=== PATIENT | male | born 1995 ===

== ENCOUNTER 2023-05-05 11:07 | Inpatient (IN) | payer OTHER, SELFPAY ==
--- NOTE | ~2023-05-05 | XR_ITS ---
EXAMINATION: XR CHEST CLINICAL INFORMATION: Weakness. Dizziness. COMPARISON: None available. TECHNIQUE: 2 views of the chest were obtained. FINDINGS: No significant abnormality is noted involving the heart, lungs, mediastinum, bony thorax or soft tissues. XR/XR chest 2V IMPRESSION: Normal chest PA and lateral.
[2023-05-05 11:25] VITALS: BP 138/71; PULSE 95; RESP 18; TEMP 36.8; O2SAT 99; BMI 29.9
--- NOTE | 2023-05-05 11:25 | ED.GENADULT ---
HPI - General Adult General Chief complaint: GI Bleed Stated complaint: dizzy/bloody stool Time Seen by Provider: 05/05/23 12:55 Source: patient, RN notes reviewed and old records reviewed Mode of arrival: ambulatory History of Present Illness HPI narrative: 27-year-old male with a past medical history of ulcers presenting to the ED complaining of periumbilical abdominal pain, lightheadedness/fatigue, nausea, dark/black and bloody stool x few days. Denies chest pain, shortness of breath, dysuria/hematuria, headache Related Data Allergies Allergy/AdvReac Type Severity Reaction Status Date / Time No Known Allergies Allergy Verified 05/05/23 11:28 Review of Systems Review of Systems: Constitutional: No Fever, No Chills, + lethargy, + fatigue, + pale ENT/Mouth: No Ear Pain, No Nasal Congestion, No sore throat, No Rhinorrhea, No Swallowing Difficulty Cardiovascular: No Chest Pain, No SOB Respiratory: No Cough, No Sputum Gastrointestinal: No Nausea, No Vomiting, No Diarrhea, No Constipation, +Abdominal pain, +black stool Genitourinary: No Dysuria, No Hematuria, No Urinary Incontinence/retention, No Flank Pain Musculoskeletal: No joint pain, No Myalgias Skin: No Skin Lesions, No rash Neuro: No Weakness, + lightheaded Yes all other systems are reviewed and are negative Constitutional: Constitutional: Reports as per HPI Neurologic: Denies Abnormal speech present [facility] Past Medical History Attestation statement: The following information was validated with the patient. Source: old records reviewed Social History Social History Smoked in Last 30 Days: No Use of substances other than those prescribed or required for medical reasons: No Advance Directives: No Physical Exam ED Vital Signs: Vital Signs - 24 hr 05/05/23 11:25 05/05/23 15:02 05/05/23 15:29 Temperature 98.2 F Pulse Rate 95 75 81 Respiratory Rate 18 15 Blood Pressure 138/71 134/65 131/68 Pulse Oximetry 99 99 Oxygen Delivery Method Room Air Room Air 05/05/23 15:30 05/05/23 15:32 Temperature Pulse Rate 84 87 Respiratory Rate Blood Pressure 123/75 133/73 Pulse Oximetry Oxygen Delivery Method BMI result Body Mass Index 29.9 Const Other: mildly pale General: cooperative and no acute distress Orientation/consciousness: patient oriented x3 Limitations: no limitations HENMT Head: Yes normal to inspection and Yes atraumatic Ears: hearing grossly normal bilaterally General nose exam: Normal external nose present Face and sinus: Yes normal facial exam Eyes General: appearance normal, both eyes and all related structures EOM: EOMs intact bilaterally Neck Neck: Yes normal visual inspection and Yes no meningeal signs Resp Effort & Inspection: normal respiratory effort and no respiratory distress Auscultation: clear to auscultation bilaterally Cardio Rate: regular rate Heart sounds: S1 normal heart sound present and S2 normal heart sound present GI Inspection: Yes normal to inspection Palpation (GI): Soft to palpation, nontender, no guarding and not rigid Rectal Exam - Male: Yes deferred General: Yes no CVA tenderness Back/Spine/Pelvis Back: no CVA tenderness Skin Rashes: no rashes Wounds: no wounds Neuro General: patient oriented x3, gait normal, tone normal, moves all extremities, no meningeal signs, no focal motor deficits and CN's II-XI intact bilaterally Cranial nerves: Yes CN's II-XII intact bilaterally and Yes Bilaterally intact EOM present Cognition (Neuro): normal cognition Speech: No Abnormal speech present Gait exam (Neuro): Normal gait present Motor exam (neuro): 5/5 motor strength present throughout Extrem General: Yes normal to inspection Course Course Course Narrative: RME performed by Snehal Sanchez PA-C. Patient is a 27 year old assigned male at presenting to the emergency department with dark stools, dizziness, lightheadedness, and abdominal pain. Detailed physical exam and review of systems are deferred to the analysis engineer. Labs ordered. Patient placed back in the waiting room pending room availability and results. -no leukocytosis. Anemic with a hemoglobin 10.1/30.2 > no available priors to compare. Records were [facility] from [facility] -labs otherwise reassuring. UA negative. Occult stool positive -COVID and flu negative XR chest 2V IMPRESSION: Normal chest PA and lateral. > case discussed with GI, Dr. Martini who believes patient does not need admission at this time. Patient with stable vital signs & no need for emergent EGD/colonoscopy. >> will obtain repeat CBC -[id number]--repeat CBC with drop to 9.3/27.7 > plan to admit for further management Medications Administered Discontinued Medications Generic Name Dose Route Start Last Admin Trade Name Arminda PRN Reason Stop Dose Admin Sodium Chloride 1,000 mls @ 999 mls/hr 05/05/23 13:30 05/05/23 13:45 Ns IV 05/05/23 14:30 999 mls/hr .Q1H1M STEPH Administration Medical Decision Making Medical Decision Making [facility] Narrative: 27-year-old male with a past medical history of ulcers presenting to the ED complaining of periumbilical abdominal pain, lightheadedness/fatigue, nausea, dark/black and bloody stool x few days. On exam vital signs stable, NAD, nontoxic appearing physical exam as noted above. Abdomen soft/nontender. Patient deferred/refused rectal exam. Concern for UGIB vs anemia vs metabolic/infectious etiology. Lower suspicion for appendicitis/diverticulitis, colitis, pancreatitis or cholecystitis/lithiasis Plan: EKG, labs, UA, occult stool, IVF, re-evaluate, orthostatics Please refer to course for remaining clinical decision making, interpretation of labs/imaging results, and discussions with consultants and/or family members. Differential Diagnosis Differential Diagnoses: The differential diagnosis associated with the presentation includes As above Admission/Observation Consideration of admission/observation: Escalation of care including admission/observation considered Consult Healthcare Provider Management of the patient was discussed with: Hospitalist and Snack Bar Attendant (GI Dr. Martini) Lab Data [facility] Lab Attestation statement: I reviewed the patient's lab results. 05/05/23 15:36 05/05/23 11:39 Labs: Lab Results 05/05/23 05/05/23 05/05/23 Range/Units 11:39 11:40 13:46 WBC 7.0 (4.8-10.8) X10*3/uL RBC 4.02 L (4.60-5.80) X10*6/uL Hgb 10.1 L (14.0-18.0) g/dl Hct 30.2 L (42.0-52.0) % MCV 75.1 L (80.0-98.0) fL MCH 25.1 L (27.0-33.0) pg MCHC 33.4 (31.0-36.0) g/dl RDW 15.0 (11.0-16.0) % Plt Count 228 (160-400) X10*3/uL MPV 9.9 (9.4-12.4) fL Immature Gran % (Auto) 0.4 (0.0-0.4) % Neut % (Auto) 58.4 (45-73) % Lymph % (Auto) 31.7 (20-40) % [place] % (Auto) 7.1 (2-11) % Eos % (Auto) 2.3 (0-4) % Baso % (Auto) 0.1 (0-2) % Lymph # (Auto) 2.2 (1.2-4.9) X10*3/uL [place] # (Auto) 0.5 (0.1-1.2) X10*3/uL Eos # (Auto) 0.2 (0.0-0.4) X10*3/uL Baso # (Auto) 0.0 (0.0-0.2) X10*3/uL Abs Immat Gran (auto) 0.03 (0.00-0.03) X10*3/uL Absolute Neuts (auto) 4.1 (2.0-8.3) x10*3/uL Absolute Nucleated RBC 0.000 (0.0-0.012) X10*3/uL Nucleated RBC % (auto) 0.0 (0.0-0.2) /100WBC PT 11.5 (11.1-13.3) SEC INR 0.9 (0.9-1.1) APTT 27.6 (26.0-36.8) SEC Sodium 138 (135-145) mmol/L Potassium 3.9 (3.3-5.1) mmol/L Chloride 105 (96-108) mmol/L Carbon Dioxide 24 (22-29) mmol/L Anion Gap 13 (12-20) BUN 15 (9-16) mg/dL Creatinine 0.72 (0.5-1.4) mg/dL Estim Creat Clear Calc 179.9 Estimated GFR > 60 Random Glucose 135 H (60-115) mg/dL Calcium 8.3 L (8.4-10.2) mg/dL Magnesium 1.9 (1.6-2.6) mg/dL Total Bilirubin 0.3 (0.0-1.0) mg/dL AST 14 (5-37) U/L ALT 17 (0-40) U/L Alkaline Phosphatase 55 (39-117) U/L Troponin I High Sens < 2.7 (<3.5-35.0) ng/L Total Protein 6.6 (6.5-8.0) g/dL Albumin 3.7 (3.5-5.0) g/dL Lipase 15 (8-78) U/L Urine Color Yellow Urine Appearance Clear Urine pH 6.5 (5.0-9.0) Ur Specific [place] 1.020 (1.005-1.025) Urine Protein Negative (Neg-Trace) mg/dL Urine Glucose (UA) Negative (Negative) mg/dL Urine Ketones Negative (Negative) mg/dL Urine Blood Negative (Negative) Urine Nitrite Negative (Negative) Ur Leukocyte Esterase Trace H (Negative) Urine RBC 0-2 (0-2) /HPF Urine WBC 0-5 (0-5) /HPF Ur Squamous Epith Cells 0-2 (0-2) /HPF Urine Bacteria None Seen (None Seen) Hyaline Casts 0-2 (0-2) /LPF Stool Occult Blood POSITIVE (NEGATIVE) COVID-19 (AREN) Negative (Negative) COVID-19 Clin Com See Note Influenza Type A (ELYSSA) Negative (Negative) Influenza Type B (ELYSSA) Negative (Negative) Influenza A & B Note See Note 05/05/23 Range/Units 15:36 WBC 6.9 (4.8-10.8) X10*3/uL RBC 3.66 L (4.60-5.80) X10*6/uL Hgb 9.3 L (14.0-18.0) g/dl Hct 27.7 L (42.0-52.0) % MCV 75.7 L (80.0-98.0) fL MCH 25.4 L (27.0-33.0) pg MCHC 33.6 (31.0-36.0) g/dl RDW 15.0 (11.0-16.0) % Plt Count 217 (160-400) X10*3/uL MPV 9.4 (9.4-12.4) fL Immature Gran % (Auto) 0.1 (0.0-0.4) % Neut % (Auto) 59.3 (45-73) % Lymph % (Auto) 30.9 (20-40) % [place] % (Auto) 8.0 (2-11) % Eos % (Auto) 1.6 (0-4) % Baso % (Auto) 0.1 (0-2) % Lymph # (Auto) 2.1 (1.2-4.9) X10*3/uL [place] # (Auto) 0.6 (0.1-1.2) X10*3/uL Eos # (Auto) 0.1 (0.0-0.4) X10*3/uL Baso # (Auto) 0.0 (0.0-0.2) X10*3/uL Abs Immat Gran (auto) 0.01 (0.00-0.03) X10*3/uL Absolute Neuts (auto) 4.1 (2.0-8.3) x10*3/uL Absolute Nucleated RBC 0.000 (0.0-0.012) X10*3/uL Nucleated RBC % (auto) 0.0 (0.0-0.2) /100WBC PT (11.1-13.3) SEC INR (0.9-1.1) APTT (26.0-36.8) SEC Sodium (135-145) mmol/L Potassium (3.3-5.1) mmol/L Chloride (96-108) mmol/L Carbon Dioxide (22-29) mmol/L Anion Gap (12-20) BUN (9-16) mg/dL Creatinine (0.5-1.4) mg/dL Estim Creat Clear Calc Estimated GFR Random Glucose (60-115) mg/dL Calcium (8.4-10.2) mg/dL Magnesium (1.6-2.6) mg/dL Total Bilirubin (0.0-1.0) mg/dL AST (5-37) U/L ALT (0-40) U/L Alkaline Phosphatase (39-117) U/L Troponin I High Sens (<3.5-35.0) ng/L Total Protein (6.5-8.0) g/dL Albumin (3.5-5.0) g/dL Lipase (8-78) U/L Urine Color Urine Appearance Urine pH (5.0-9.0) Ur Specific [place] (1.005-1.025) Urine Protein (Neg-Trace) mg/dL Urine Glucose (UA) (Negative) mg/dL Urine Ketones (Negative) mg/dL Urine Blood (Negative) Urine Nitrite (Negative) Ur Leukocyte Esterase (Negative) Urine RBC (0-2) /HPF Urine WBC (0-5) /HPF Ur Squamous Epith Cells (0-2) /HPF Urine Bacteria (None Seen) Hyaline Casts (0-2) /LPF Stool Occult Blood (NEGATIVE) COVID-19 (AREN) (Negative) COVID-19 Clin Com Influenza Type A (ELYSSA) (Negative) Influenza Type B (ELYSSA) (Negative) Influenza A & B Note Independent Interpretation I performed an independent interpretation of an: EKG (Interpretation EKG normal sinus rhythm rate of 90. QTC 418. QTC 418. No STEMI. ) Radiology Impression Discussion of test interpretation with radiology: I have reviewed the radiologist's reading. External Record Review External record reviewed: Inpatient record, Office record, Outpatient record, Prior outpatient labs, Prior outpatient radiology, Primary care record and Outside ED record Tests considered The following testing was considered but not selected: As above Critical Care Time Critical Care Time Critical Care Time: Yes Total Critical Care Time: 35 Attestation: I have personally provided critical care time exclusive of time spent on separately billable procedures. Time includes review of lab data, radiology results, discussion with consultants, and monitoring for potential decompensation. Intervention performed as documented. Discharge Plan Discharge Clinical Impression: UGIB (upper gastrointestinal bleed), Anemia Patient Disposition: Still a Patient
--- NOTE | 2023-05-05 11:26 | ECG_ITS ---
Test Reason : WEAK, DIZZY Blood Pressure : / mmHG Vent. Rate : 090 BPM Atrial Rate : 090 BPM P-R Int : 142 ms QRS Dur : 094 ms QT Int : 342 ms P-R-T Axes : 052 068 003 degrees QTc Int : 418 ms Normal sinus rhythm Nonspecific T wave abnormality Abnormal ECG No previous ECGs available Referred By: Snehal Sanchez Electronically Signed By:Mor Lawrence
[2023-05-05 11:46] LABS: MANUAL DIFF FLAG NO
[2023-05-05 11:47] LABS: Basophils Percent Auto 0.1 % (0-2); Eosinophils Absolute Auto 0.2 X10*3/uL (0.0-0.4); Eosinophils Percent Auto 2.3 % (0-4); Hematocrit 30.2 % (42.0-52.0); Hemoglobin 10.1 g/dl (14.0-18.0); Imm Gran Abs Auto 0.03 X10*3/uL (0.00-0.03); Imm Gran Pct Auto 0.4 % (0.0-0.4); Lymphocytes Absolute Auto 2.2 X10*3/uL (1.2-4.9); Lymphocytes Percent Auto 31.7 % (20-40); Mean Corpuscular HGB Conc 33.4 g/dl (31.0-36.0); Mean Corpuscular Hemoglobin 25.1 pg (27.0-33.0); Mean Corpuscular Volume 75.1 fL (80.0-98.0); Mean Platelet Volume 9.9 fL (9.4-12.4); Monocytes Absolute Auto 0.5 X10*3/uL (0.1-1.2); Monocytes Percent Auto 7.1 % (2-11); Neutrophils Absolute Auto 4.1 x10*3/uL (2.0-8.3); Neutrophils Percent Auto 58.4 % (45-73); Platelet Count 228 X10*3/uL (160-400); Red Blood Count 4.02 X10*6/uL (4.60-5.80)
[2023-05-05 11:47] LABS: Appearance Urine Clear; Color Urine Yellow; Glucose Urine UA Negative (Negative); Leukocyte Esterase Urine Trace (Negative); Nitrite Urine Negative (Negative); PH 6.5 (5.0-9.0); UMIC TRIGGER UACC YES; Urine Blood Negative (Negative); Urine Ketones Negative (Negative); Urine Protein Negative (Neg-Trace)
[2023-05-05 11:52] LABS: Bacteria Urine None Seen (None Seen); Hyaline Casts Urine 0-2 /LPF (0-2); RBC Urine 0-2 /HPF (0-2); Squamous Epithelial Cell Urine 0-2 /HPF (0-2); WBC Urine 0-5 /HPF (0-5)
[2023-05-05 11:54] LABS: INTERNATIONAL NORM RATIO 0.9 (0.9-1.1); Prothrombin Time 11.5 SEC (11.1-13.3)
[2023-05-05 11:56] LABS: Partial Thromboplastin Time 27.6 SEC (26.0-36.8)
[2023-05-05 12:07] LABS: COVID-19 Test Negative (Negative); IDNOW Serial# 08D9AD1C; IDNOW Serial# 152EDE1D; Influenza A Negative (Negative); Influenza B2 Negative (Negative)
[2023-05-05 12:18] LABS: Alanine Aminotransferase 17 U/L (0-40); Albumin Level 3.7 g/dL (3.5-5.0); Alkaline Phosphatase 55 U/L (39-117); Anion Gap 13 (12-20); Aspartate Amino Transferase 14 U/L (5-37); Bilirubin Total 0.3 mg/dL (0.0-1.0); Blood Urea Nitrogen 15 mg/dL (9-16); Calcium 8.3 mg/dL (8.4-10.2); Carbon Dioxide 24 mmol/L (22-29); Chloride 105 mmol/L (96-108); Creatinine Clr Calc Pharmacy 179.9; Estimated Glomerular Filt Rate > 60; Glucose Random 135 mg/dL (60-115); Lipase 15 U/L (8-78); Magnesium 1.9 mg/dL (1.6-2.6); Potassium 3.9 mmol/L (3.3-5.1); Sodium 138 mmol/L (135-145); Total Protein 6.6 g/dL (6.5-8.0)
[2023-05-05 12:26] LABS: Troponin-I High Sensitivity < 2.7 ng/L (<3.5-35.0)
[2023-05-05] MEDS: 0.9 % Sodium Chloride 1,000 ML 999 ML IV (13:45)
[2023-05-05 13:58] LABS: OBS Int Ctl Valid YES; OBS1 POSITIVE (NEGATIVE)
[2023-05-05 15:02] VITALS: BP 134/65; PULSE 75; RESP 15; O2SAT 99
[2023-05-05 15:29] VITALS: BP 131/68; PULSE 81
[2023-05-05 15:30] VITALS: BP 123/75; PULSE 84
[2023-05-05 15:32] VITALS: BP 133/73; PULSE 87
[2023-05-05 15:39] LABS: MANUAL DIFF FLAG NO
[2023-05-05 15:43] LABS: Basophils Percent Auto 0.1 % (0-2); Eosinophils Absolute Auto 0.1 X10*3/uL (0.0-0.4); Eosinophils Percent Auto 1.6 % (0-4); Hematocrit 27.7 % (42.0-52.0); Hemoglobin 9.3 g/dl (14.0-18.0); Imm Gran Abs Auto 0.01 X10*3/uL (0.00-0.03); Imm Gran Pct Auto 0.1 % (0.0-0.4); Lymphocytes Absolute Auto 2.1 X10*3/uL (1.2-4.9); Lymphocytes Percent Auto 30.9 % (20-40); Mean Corpuscular HGB Conc 33.6 g/dl (31.0-36.0); Mean Corpuscular Hemoglobin 25.4 pg (27.0-33.0); Mean Corpuscular Volume 75.7 fL (80.0-98.0); Mean Platelet Volume 9.4 fL (9.4-12.4); Monocytes Absolute Auto 0.6 X10*3/uL (0.1-1.2); Neutrophils Absolute Auto 4.1 x10*3/uL (2.0-8.3); Neutrophils Percent Auto 59.3 % (45-73); Platelet Count 217 X10*3/uL (160-400); Red Blood Count 3.66 X10*6/uL (4.60-5.80); White Blood Count 6.9 X10*3/uL (4.8-10.8)
[2023-05-05] MEDS: Pantoprazole Sodium 40 MG/10 ML VIAL 80 MG IVPUSH (16:02)
--- NOTE | 2023-05-05 16:37 | PHA.MEDREC ---
Pharmacy Consult ? Medication Reconciliation Pharmacy has completed the medication reconciliation. Patient reports he has not been taking the fenofibrate. Patient only takes fish oil OTC and drinks juices with vegetables. Jessica Groves, PharmD
--- NOTE | 2023-05-05 16:47 | P.HPHOSP_ITS ---
History of Present Illness Date of Service: 05/05/23 Chief Complaint: Bleeding 27 year old man presenting with dark stools. He reported that on Friday he started noticing black stool, not diarrhea. He denied any nausea or vomiting. No recent illness, no sick contacts, no recent travel. Denies the use of NSAIDs reported that a few months ago he was admitted to [facility] had endoscopy and colonoscopy was diagnosed with ?ulcers? periods record request is pending. He was supposed to be on a PPI. He reported for few months he had not drink alcohol or smoke cigarettes and more recently he has been drinking more on the weekends. He reported that over the weekend he had felt dizzy and generally unwell. In the ER, his H&H was 9.3 and 27.7, stool occult positive, chest x-ray negative for consolidation or effusion, stable blood pressure. Patient was given a dose of IV PPI, 1 L of IV fluid. Patient will be admitted for further management and treatment of acute upper GI bleed. Review of Systems 2 Review of Systems: Denies any recent fever chills or decrease in appetite respiratory denies any shortness of breath or cough cardiovascular denied chest pain gastrointestinal denies any dysphagia abdominal pain nausea vomiting or diarrhea, dark stools noted genitourinary denies any dysuria frequency or hematuria musculoskeletal denies any joint pain or swelling neuropsych denies any weakness or seizures all other systems reviewed are negative [facility] Medical History (Updated 05/05/23 @ 17:32 by Mile Fitzpatrick NP) Anemia Pertinent family history: Cancer, diabetes, CAD Surgical History (Updated 05/05/23 @ 17:28 by Mile Fitzpatrick NP) H/O hernia repair Social History (Updated 05/05/23 @ 17:28 by Mile Fitzpatrick NP) Alcohol intake: current Alcohol intake frequency: a few times a week Meds Allergies Allergy/AdvReac Type Severity Reaction Status Date / Time No Known Allergies Allergy Verified 05/05/23 11:28 Active Medications: Current Medications Acetaminophen (Acetaminophen 325 Mg Tablet) 650 mg PO Q6H PRN PRN Reason: Pain, Mild (Pain Scale 1-3) Ondansetron HCl (Ondansetron Hcl 4 Mg/2 Ml Vial) 4 mg IVPUSH Q8H PRN PRN Reason: Nausea and Vomiting Sodium Chloride (0.9 % Sodium Chloride Flush 3 Ml Syringe) 3 ml IVFLUSH [facility] Home Medications Medication Instructions Recorded Confirmed Last Taken Type acetaminophen 325 mg tablet 650 mg PO Q6H PRN Pain 05/05/23 05/05/23 Unknown History omega 7-uhj-aly-fish oil 1,000 mg 1 cap PO DAILY 05/05/23 05/05/23 Unknown History (120 mg-180 mg) capsule (Fish Oil) Physical Exam 2 Vital Signs and Narrative: Vital Signs: Last Vital Signs Temp 98.2 F 05/05/23 11:25 Pulse 87 05/05/23 15:32 Resp 15 05/05/23 15:02 BP 133/73 05/05/23 15:32 Pulse Ox 99 05/05/23 15:02 O2 Del Method Room Air 05/05/23 15:02 BMI result Body Mass Index 29.9 Results Labs 05/05/23 15:36 05/05/23 11:39 Labs: Laboratory Results - last 24 hr 05/05/23 05/05/23 05/05/23 11:39 11:40 13:46 MCV 75.1 L MCH 25.1 L MCHC 33.4 RDW 15.0 Plt Count 228 MPV 9.9 Immature Gran % (Auto) 0.4 Neut % (Auto) 58.4 Lymph % (Auto) 31.7 [place] % (Auto) 7.1 Eos % (Auto) 2.3 Baso % (Auto) 0.1 Lymph # (Auto) 2.2 [place] # (Auto) 0.5 Eos # (Auto) 0.2 Baso # (Auto) 0.0 Abs Immat Gran (auto) 0.03 Absolute Neuts (auto) 4.1 Absolute Nucleated RBC 0.000 Nucleated RBC % (auto) 0.0 PT 11.5 INR 0.9 APTT 27.6 Anion Gap 13 Estim Creat Clear Calc 179.9 Estimated GFR > 60 Random Glucose 135 H Calcium 8.3 L Magnesium 1.9 Total Bilirubin 0.3 AST 14 ALT 17 Alkaline Phosphatase 55 Total Protein 6.6 Albumin 3.7 Lipase 15 Urine Color Yellow Urine Appearance Clear Urine pH 6.5 Ur Specific [place] 1.020 Urine Protein Negative Urine Glucose (UA) Negative Urine Ketones Negative Urine Blood Negative Urine Nitrite Negative Ur Leukocyte Esterase Trace H Urine RBC 0-2 Urine WBC 0-5 Ur Squamous Epith Cells 0-2 Urine Bacteria None Seen Hyaline Casts 0-2 Stool Occult Blood POSITIVE COVID-19 (AREN) Negative COVID-19 Clin Com See Note Influenza Type A (ELYSSA) Negative Influenza Type B (ELYSSA) Negative Influenza A & B Note See Note 05/05/23 15:36 MCV 75.7 L MCH 25.4 L MCHC 33.6 RDW 15.0 Plt Count 217 MPV 9.4 Immature Gran % (Auto) 0.1 Neut % (Auto) 59.3 Lymph % (Auto) 30.9 [place] % (Auto) 8.0 Eos % (Auto) 1.6 Baso % (Auto) 0.1 Lymph # (Auto) 2.1 Miller # (Auto) 0.6 Eos # (Auto) 0.1 Baso # (Auto) 0.0 Abs Immat Gran (auto) 0.01 Absolute Neuts (auto) 4.1 Absolute Nucleated RBC 0.000 Nucleated RBC % (auto) 0.0 PT INR APTT Anion Gap Estim Creat Clear Calc Estimated GFR Random Glucose Calcium Magnesium Total Bilirubin AST ALT Alkaline Phosphatase Total Protein Albumin Lipase Urine Color Urine Appearance Urine pH Ur Specific [place] Urine Protein Urine Glucose (UA) Urine Ketones Urine Blood Urine Nitrite Ur Leukocyte Esterase Urine RBC Urine WBC Ur Squamous Epith Cells Urine Bacteria Hyaline Casts Stool Occult Blood COVID-19 (AREN) COVID-19 Clin Com Influenza Type A (ELYSSA) Influenza Type B (ELYSSA) Influenza A & B Note Imaging Radiologist's Impressions: Impressions Chest X-Ray 05/05/23 12:08 IMPRESSION: Normal chest PA and lateral. Assessment and Plan (1) UGIB (upper gastrointestinal bleed): Status: Acute Plan 27 year old man admitted with possible UGIB with melena reported UGIB recent hospital stay at [facility] for same, had EGD and colo, records requested black stool at home since friday stable HH no need for tx as of now IV PPI BID Q6H HH Type and screen GI consult NPO Alcohol use reports weekend drinking no withdrawal symptoms monitor DVT prophylaxis with SCD boots in light of GIB Full code will require at least 48 hrs for workup of acute UGIB, requiring specialty consultation Quality Stroke Does the patient have a stroke diagnosis?: No VTE Prior VTE?: No VTE Risk Level:: Medical - moderate - high VTE Device Contraindication: N/A - Device Ordered VTE Drug Contraindication: Treatment Not Indicated
[2023-05-05 20:53] LABS: Hematocrit 27.6 % (42.0-52.0); Hemoglobin 9.1 g/dl (14.0-18.0)
--- NOTE | 2023-05-05 21:28 | PC.NURSE ---
pt reporting 7/10 sharp abd pain upper mid, denies n/v. no radiation. Dr Flanagan aware.
[2023-05-05 22:40] VITALS: BP 120/59; PULSE 76; RESP 12; TEMP 36.8; O2SAT 97
[2023-05-06] MEDS: 0.9 % Sodium Chloride Flush 3 ML SYRINGE IVFLUSH ×2 (01:10→09:34)
[2023-05-06 01:44] VITALS: BP 111/60; PULSE 76; RESP 14; TEMP 36.6; O2SAT 99
[2023-05-06 03:52] LABS: Hematocrit 27.8 % (42.0-52.0); Hemoglobin 9.2 g/dl (14.0-18.0)
[2023-05-06 04:09] VITALS: BMI 30.2
[2023-05-06 04:12] VITALS: BP 130/66; PULSE 75; RESP 18; TEMP 36.3; O2SAT 99
[2023-05-06] MEDS: Pantoprazole Sodium 40 MG/10 ML VIAL IVPUSH (05:59)
[2023-05-06 07:26] VITALS: BP 115/65; PULSE 70; RESP 14; TEMP 36.1; O2SAT 99
[2023-05-06 07:33] LABS: MANUAL DIFF FLAG NO
[2023-05-06 07:43] LABS: Basophils Percent Auto 0.3 % (0-2); Eosinophils Absolute Auto 0.2 X10*3/uL (0.0-0.4); Eosinophils Percent Auto 2.5 % (0-4); Hematocrit 28.2 % (42.0-52.0); Hemoglobin 9.4 g/dl (14.0-18.0); Imm Gran Abs Auto 0.02 X10*3/uL (0.00-0.03); Imm Gran Pct Auto 0.3 % (0.0-0.4); Lymphocytes Percent Auto 33.2 % (20-40); Mean Corpuscular HGB Conc 33.3 g/dl (31.0-36.0); Mean Corpuscular Hemoglobin 25.3 pg (27.0-33.0); Mean Platelet Volume 9.6 fL (9.4-12.4); Monocytes Absolute Auto 0.6 X10*3/uL (0.1-1.2); Monocytes Percent Auto 9.4 % (2-11); Neutrophils Absolute Auto 3.2 x10*3/uL (2.0-8.3); Neutrophils Percent Auto 54.3 % (45-73); Platelet Count 221 X10*3/uL (160-400); Red Blood Count 3.71 X10*6/uL (4.60-5.80); Red Cell Distribution Width 15.7 % (11.0-16.0); White Blood Count 5.9 X10*3/uL (4.8-10.8)
[2023-05-06 07:51] LABS: Estimated Average Glucose 100 mg/dL; Hemoglobin A1c % 5.1 % (<6.0)
[2023-05-06 07:53] LABS: Iron 22 mcg/dL (45-160); Percent Iron Saturation 7 % (15-50); Total Iron Binding Capacity 320 mcg/dL (228-428); Unsaturated Iron Binding 298 ug/dL
[2023-05-06 07:56] LABS: Anion Gap 9 (12-20); Blood Urea Nitrogen 10 mg/dL (9-16); Calcium 8.5 mg/dL (8.4-10.2); Carbon Dioxide 28 mmol/L (22-29); Chloride 106 mmol/L (96-108); Creatinine Clr Calc Pharmacy 173.6; Estimated Glomerular Filt Rate > 60; Glucose Random 90 mg/dL (60-115); Magnesium 1.9 mg/dL (1.6-2.6); Potassium 4.1 mmol/L (3.3-5.1); Sodium 139 mmol/L (135-145)
[2023-05-06 07:57] LABS: Cholesterol 199 mg/dL (<200); HDL Cholesterol 34 mg/dL (>40); LDL Cholesterol Calculated 99 mg/dL (<100); Triglycerides 331 mg/dL (<150)
--- NOTE | 2023-05-06 09:40 | MHC.CM.PN ---
PATIENT IS FROM HOME W/ 8 YEAR OLD DTR. FUNCTIONALLY INDEPENDENT. NO SERVICES OR DME. PCP: GRETEL DELCID MD HCP: CM PROVIDED EDUCATION AND OFFERED ASSISTANCE, PATIENT DECLINED BUT WILL CONSIDER. DP: GOAL IS HOME SELF CARE. FAMILY TO TRANSPORT. CM WILL CONTINUE TO FOLLOW.
[2023-05-06 11:49] VITALS: BP 130/77; PULSE 79; RESP 18; TEMP 36.1; O2SAT 97
--- NOTE | 2023-05-06 12:10 | P.CONAN_ITS ---
[facility] Active Problems Active Problems: All Active Problems (Updated 05/05/23 @ 17:32 by Mile Fitzpatrick NP) UGIB (upper gastrointestinal bleed) (Acute) Past Medical History Medical History Anemia Surgical History Surgical History H/O hernia repair History of Problems with Anesthesia: No Social History Social History Household Members: Children Housing: Apartment Do you presently have visiting nurse or other home services: No Alcohol intake: current Alcohol intake frequency: a few times a week Patient Tobacco Use Status: Former Tobacco user service: No Meds Allergies Allergy/AdvReac Type Severity Reaction Status Date / Time No Known Allergies Allergy Verified 05/05/23 11:28 Active Medications: Current Medications Acetaminophen (Acetaminophen 325 Mg Tablet) 650 mg PO Q6H PRN PRN Reason: Pain, Mild (Pain Scale 1-3) Ondansetron HCl (Ondansetron Hcl 4 Mg/2 Ml Vial) 4 mg IVPUSH Q8H PRN PRN Reason: Nausea and Vomiting Ondansetron HCl (Ondansetron Hcl 4 Mg/2 Ml Vial) 4 mg IVPUSH ONCE PRN PRN Reason: Nausea and Vomiting Pantoprazole Sodium (Pantoprazole Sodium 40 Mg/10 Ml Vial) 40 mg IVPUSH BID@0630,1630 [facility] Last Admin: 05/06/23 05:59 Dose: 40 mg Sodium Chloride (0.9 % Sodium Chloride Flush 3 Ml Syringe) [facility] Last Admin: 05/06/23 09:34 Dose: 3 ml Home Medications Medication Instructions Recorded Confirmed Last Taken Type acetaminophen 325 mg tablet 650 mg PO Q6H PRN Pain 05/05/23 05/05/23 Unknown History omega 1-azb-tyr-fish oil 1,000 mg 1 cap PO DAILY 05/05/23 05/05/23 Unknown History (120 mg-180 mg) capsule (Fish Oil) Exam Height,Weight and Vital Signs: Height 5 ft 11 in Weight 98.2 kg Last Vital Signs Temp 97.0 F 05/06/23 11:49 Pulse 79 05/06/23 11:49 Resp 18 05/06/23 11:49 BP 130/77 05/06/23 11:49 Pulse Ox 97 05/06/23 11:49 O2 Del Method Room Air 05/06/23 11:49 Pertinent Lab Results Pertinent Lab Results: Laboratory Tests 05/05/23 05/05/23 05/05/23 11:39 11:40 13:46 WBC 7.0 RBC 4.02 L Hgb 10.1 L Hct 30.2 L MCV 75.1 L MCH 25.1 L MCHC 33.4 RDW 15.0 Plt Count 228 MPV 9.9 Immature Gran % (Auto) 0.4 Neut % (Auto) 58.4 Lymph % (Auto) 31.7 Fleming % (Auto) 7.1 Eos % (Auto) 2.3 Baso % (Auto) 0.1 Lymph # (Auto) 2.2 Fleming # (Auto) 0.5 Eos # (Auto) 0.2 Baso # (Auto) 0.0 Abs Immat Gran (auto) 0.03 Absolute Neuts (auto) 4.1 Absolute Nucleated RBC 0.000 Nucleated RBC % (auto) 0.0 PT 11.5 INR 0.9 APTT 27.6 Sodium 138 Potassium 3.9 Chloride 105 Carbon Dioxide 24 Anion Gap 13 BUN 15 Creatinine 0.72 Estim Creat Clear Calc 179.9 Estimated GFR > 60 Random Glucose 135 H Estimat Average Glucose Hemoglobin A1c % Calcium 8.3 L Magnesium 1.9 Iron TIBC % Saturation Unsat Iron Binding Total Bilirubin 0.3 AST 14 ALT 17 Alkaline Phosphatase 55 Troponin I High Sens < 2.7 Total Protein 6.6 Albumin 3.7 Triglycerides Cholesterol LDL Cholesterol, Calc HDL Cholesterol Lipase 15 Urine Color Yellow Urine Appearance Clear Urine pH 6.5 Ur Specific [place] 1.020 Urine Protein Negative Urine Glucose (UA) Negative Urine Ketones Negative Urine Blood Negative Urine Nitrite Negative Ur Leukocyte Esterase Trace H Urine RBC 0-2 Urine WBC 0-5 Ur Squamous Epith Cells 0-2 Urine Bacteria None Seen Hyaline Casts 0-2 Stool Occult Blood POSITIVE COVID-19 (AREN) Negative COVID-19 Clin Com See Note Influenza Type A (ELYSSA) Negative Influenza Type B (ELYSSA) Negative Influenza A & B Note See Note Blood Type Antibody Screen 05/05/23 05/05/23 05/05/23 15:36 19:12 20:40 WBC 6.9 RBC 3.66 L Hgb 9.3 L 9.1 L Hct 27.7 L 27.6 L MCV 75.7 L MCH 25.4 L MCHC 33.6 RDW 15.0 Plt Count 217 MPV 9.4 Immature Gran % (Auto) 0.1 Neut % (Auto) 59.3 Lymph % (Auto) 30.9 Fleming % (Auto) 8.0 Eos % (Auto) 1.6 Baso % (Auto) 0.1 Lymph # (Auto) 2.1 Fleming # (Auto) 0.6 Eos # (Auto) 0.1 Baso # (Auto) 0.0 Abs Immat Gran (auto) 0.01 Absolute Neuts (auto) 4.1 Absolute Nucleated RBC 0.000 Nucleated RBC % (auto) 0.0 PT INR APTT Sodium Potassium Chloride Carbon Dioxide Anion Gap BUN Creatinine Estim Creat Clear Calc Estimated GFR Random Glucose Estimat Average Glucose Hemoglobin A1c % Calcium Magnesium Iron TIBC % Saturation Unsat Iron Binding Total Bilirubin AST ALT Alkaline Phosphatase Troponin I High Sens Total Protein Albumin Triglycerides Cholesterol LDL Cholesterol, Calc HDL Cholesterol Lipase Urine Color Urine Appearance Urine pH Ur Specific [place] Urine Protein Urine Glucose (UA) Urine Ketones Urine Blood Urine Nitrite Ur Leukocyte Esterase Urine RBC Urine WBC Ur Squamous Epith Cells Urine Bacteria Hyaline Casts Stool Occult Blood COVID-19 (AREN) COVID-19 Clin Com Influenza Type A (ELYSSA) Influenza Type B (ELYSSA) Influenza A & B Note Blood Type A Positive Antibody Screen NEGATIVE 05/06/23 05/06/23 05/06/23 03:47 07:27 07:27 WBC 5.9 RBC 3.71 L Hgb 9.2 L 9.4 L Cancelled Hct 27.8 L 28.2 L MCV MCH MCHC RDW Plt Count MPV Immature Gran % (Auto) Neut % (Auto) Lymph % (Auto) Fleming % (Auto) Eos % (Auto) Baso % (Auto) Lymph # (Auto) Fleming # (Auto) Eos # (Auto) Baso # (Auto) Abs Immat Gran (auto) Absolute Neuts (auto) Absolute Nucleated RBC Nucleated RBC % (auto) PT INR APTT Sodium Potassium Chloride Carbon Dioxide Anion Gap BUN Creatinine Estim Creat Clear Calc Estimated GFR Random Glucose Estimat Average Glucose Hemoglobin A1c % Calcium Magnesium Iron TIBC % Saturation Unsat Iron Binding Total Bilirubin AST ALT Alkaline Phosphatase Troponin I High Sens Total Protein Albumin Triglycerides Cholesterol LDL Cholesterol, Calc HDL Cholesterol Lipase Urine Color Urine Appearance Urine pH Ur Specific [place] Urine Protein Urine Glucose (UA) Urine Ketones Urine Blood Urine Nitrite Ur Leukocyte Esterase Urine RBC Urine WBC Ur Squamous Epith Cells Urine Bacteria Hyaline Casts Stool Occult Blood COVID-19 (AREN) COVID-19 Clin Com Influenza Type A (ELYSSA) Influenza Type B (ELYSSA) Influenza A & B Note Blood Type Antibody Screen 05/06/23 07:27 WBC RBC Hgb Hct Cancelled MCV 76.0 L MCH 25.3 L MCHC 33.3 RDW 15.7 Plt Count 221 MPV 9.6 Immature Gran % (Auto) 0.3 Neut % (Auto) 54.3 Lymph % (Auto) 33.2 Fleming % (Auto) 9.4 Eos % (Auto) 2.5 Baso % (Auto) 0.3 Lymph # (Auto) 2.0 Fleming # (Auto) 0.6 Eos # (Auto) 0.2 Baso # (Auto) 0.0 Abs Immat Gran (auto) 0.02 Absolute Neuts (auto) 3.2 Absolute Nucleated RBC 0.000 Nucleated RBC % (auto) 0.0 PT INR APTT Sodium 139 Potassium 4.1 Chloride 106 Carbon Dioxide 28 Anion Gap 9 L BUN 10 Creatinine 0.75 Estim Creat Clear Calc 173.6 Estimated GFR > 60 Random Glucose 90 Estimat Average Glucose 100 Hemoglobin A1c % 5.1 Calcium 8.5 Magnesium 1.9 Iron 22 L TIBC 320 % Saturation 7 L Unsat Iron Binding 298 Total Bilirubin AST ALT Alkaline Phosphatase Troponin I High Sens Total Protein Albumin Triglycerides 331 H Cholesterol 199 LDL Cholesterol, Calc 99 HDL Cholesterol 34 L Lipase Urine Color Urine Appearance Urine pH Ur Specific [place] Urine Protein Urine Glucose (UA) Urine Ketones Urine Blood Urine Nitrite Ur Leukocyte Esterase Urine RBC Urine WBC Ur Squamous Epith Cells Urine Bacteria Hyaline Casts Stool Occult Blood COVID-19 (AREN) COVID-19 Clin Com Influenza Type A (ELYSSA) Influenza Type B (ELYSSA) Influenza A & B Note Blood Type Antibody Screen Airway Mallampati Class: III TM Dist: >3cm Neck ROM: Full Heart: rrr Lungs: clear Assessment and Plan Final Anesthetic Review History of Problems with Anesthesia: No NPO: Yes ASA Class: II and Emergency Final Preanesthetic Review: No Changes in Pt Med Stat, Meds/Allgs Chart Reviewed, Consent Obtained/Reviewed and Anes Risks/Benef Reviewed Patient Risk: Low Procedure Risk: Low Anesthetic Plan Anesthetic Plan: MAC: Disposition: Standard PACU
--- NOTE | 2023-05-06 12:18 | MHC.SHP ---
Pre-Procedural Eval Section A - 24 Hr Update-Section A only Date of Service: 05/06/23 The patient is an INPATIENT: Yes Changes since office visit: No Cold of Flu in the past 2 weeks, No New Medical Problems, No Changes in Medication and No Patient answered all questions The patient has been examined within 24 hours of the surgical procedure. The History & Physical has been completed within 30 days and I have reviewed it.: Yes Section B - Complete if H&P > 30 days Chief Complaint: UGIB Allergies: Allergies Allergy/AdvReac Type Severity Reaction Status Date / Time No Known Allergies Allergy Verified 05/05/23 11:28 Plan I have reviewed the history and physical and performed a pertinent physical examination on my patient. No changes have occurred unless specified. Time Spent With Patient Time: Total time managing care of this patient today ____ minutes.
--- NOTE | 2023-05-06 12:46 | PM.EVENT ---
Event Note Date of Service: 05/06/23 Event Note: EGD dictated mild gastritis 2 clean based small ulcers in duodenal bulb, no bleeding antral biopsies obtained. advance diet f/u bx results avoid alcohol and nsaids oral ppi Time Spent With Patient Time: Total time managing care of this patient today ____ minutes.
[2023-05-06 12:48] VITALS: BP 92/47; PULSE 86; RESP 16; TEMP 36.5; O2SAT 97
--- NOTE | 2023-05-06 13:02 | OP_ITS ---
DATE OF SERVICE: 05/06/2023 SURGEON: Shawn Martini MD INDICATIONS: Upper GI bleeding. PREOPERATIVE DIAGNOSIS: POSTOPERATIVE DIAGNOSIS: PROCEDURE PERFORMED: Upper endoscopy with biopsy. ESTIMATED BLOOD LOSS: COMPLICATIONS: ANESTHESIA: Monitored anesthesia care. ASSISTANTS: SPECIMENS: DESCRIPTION OF PROCEDURE: A history and physical was performed. The risks and benefits of the procedure were explained to the patient. Informed consent was obtained. The patient was placed in the left lateral decubitus position. The Olympus video gastroscope was introduced into the esophagus, stomach, and duodenum. Examination was performed. The scope was removed. He tolerated the procedure well and was returned to the recovery area in stable condition. FINDINGS: Esophagus: The esophagus was normal. Stomach: The stomach showed patchy erythema consistent with gastritis. Biopsies were obtained from the antrum. There was no active bleeding. Duodenum: In the bulb were 2 less than 10 mm ulcers on the anterior wall with clean bases. No bleeding was identified. No therapy was performed. The second portion was normal. IMPRESSION: Duodenal ulcers, gastritis. RECOMMENDATION: 1. Follow up the biopsy results. 2. Avoid alcohol and NSAIDs. 3. Continue proton pump inhibitor. MD YUSRA John/MODL / [id number]
[2023-05-06 13:03] VITALS: BP 121/66; PULSE 75; RESP 18; TEMP 36.3; O2SAT 96
--- NOTE | 2023-05-06 13:47 | P.DS_ITS ---
DS: Providers Provider Date of Service: 05/06/23 Date of admission: 05/05/23 16:40 Primary care physician: Cricket Lua MD Consults: 05/05/23 16:42 Consult to Gastroenterology Routine Consulting Provider: Shawn Martini Reason for consultation: UGIB DS: Diagnosis Discharge Diagnosis (1) UGIB (upper gastrointestinal bleed): Status: Acute DS: Summary Hospital Course Hospital Course: History and physical as per admitting provider. 27 year old man presenting with dark stools. He reported that on Friday he started noticing black stool, not diarrhea. He denied any nausea or vomiting. No recent illness, no sick contacts, no recent travel. Denies the use of NSAIDs reported that a few months ago he was admitted to [facility] had endoscopy and colonoscopy was diagnosed with ?ulcers? periods record request is pending. He was supposed to be on a PPI. He reported for few months he had not drink alcohol or smoke cigarettes and more recently he has been drinking more on the weekends. He reported that over the weekend he had felt dizzy and generally unwell. In the ER, his H&H was 9.3 and 27.7, stool occult positive, chest x-ray negative for consolidation or effusion, stable blood pressure. Patient was given a dose of IV PPI, 1 L of IV fluid. Patient will be admitted for further management and treatment of acute upper GI bleed. 27-year-old man treated for anemia. Patient noted black stools at home. He had endoscopy today which showed mild gastritis, 2 clean based small ulcers and duodenal bulb with no bleeding, biopsies obtained. H&H has remained stable. [place] cid did not require any blood transfusion. Iron was noted to be low at 22, TIBC 320, % saturation 7. Patient will be started on iron supplementation and will continue PPI at home. He can follow up with Gastroenterology as needed. Patient will be discharged home. He was encouraged to stop drinking alcohol and avoid NSAIDs. Time Attestation Discharge coordination time: Greater than 30 minutes Quality: Safe Use of Opioids Does Pt have an Active Cancer Diagnosis on the Problem List?: No Quality: Stroke Does the patient have a stroke diagnosis?: No Physical Exam Vital Signs: Vital Signs: Last Vital Signs Temp 97.4 F 05/06/23 13:03 Pulse 75 05/06/23 13:03 Resp 18 05/06/23 13:03 BP 121/66 05/06/23 13:03 Pulse Ox 96 05/06/23 13:03 O2 Del Method Room Air 05/06/23 13:03 BMI result Body Mass Index 30.2 Appearing in no acute distress head is normocephalic atraumatic eyes pupils are PERRLA sclera is anicteric mouth throat mucous membranes are intact and moist neck is supple no lymphadenopathy, no JVD noted lung sounds are clear to auscultation heart regular rate rhythm, clear S1, S2 positive bowel sounds, abdomen is soft, nontender neuro patient is alert x3, no focal deficits DS: Data Data Completed and Pending Pending studies at discharge: Pending at discharge 05/06/23 12:40 Surgical [PTH] Routine Labs on day of discharge: Laboratory Results - last 24 hr 05/05/23 05/05/23 05/05/23 13:46 15:36 19:12 WBC 6.9 RBC 3.66 L Hgb 9.3 L Hct 27.7 L MCV 75.7 L MCH 25.4 L MCHC 33.6 RDW 15.0 Plt Count 217 MPV 9.4 Immature Gran % (Auto) 0.1 Neut % (Auto) 59.3 Lymph % (Auto) 30.9 [place] % (Auto) 8.0 Eos % (Auto) 1.6 Baso % (Auto) 0.1 Lymph # (Auto) 2.1 [place] # (Auto) 0.6 Eos # (Auto) 0.1 Baso # (Auto) 0.0 Abs Immat Gran (auto) 0.01 Absolute Neuts (auto) 4.1 Absolute Nucleated RBC 0.000 Nucleated RBC % (auto) 0.0 Sodium Potassium Chloride Carbon Dioxide Anion Gap BUN Creatinine Estim Creat Clear Calc Estimated GFR Random Glucose Estimat Average Glucose Hemoglobin A1c % Calcium Magnesium Iron TIBC % Saturation Unsat Iron Binding Triglycerides Cholesterol LDL Cholesterol, Calc HDL Cholesterol Stool Occult Blood POSITIVE Blood Type A Positive Antibody Screen NEGATIVE 05/05/23 05/06/23 05/06/23 20:40 03:47 07:27 WBC 5.9 RBC 3.71 L Hgb 9.1 L 9.2 L 9.4 L Hct 27.6 L 27.8 L MCV MCH MCHC RDW Plt Count MPV Immature Gran % (Auto) Neut % (Auto) Lymph % (Auto) [place] % (Auto) Eos % (Auto) Baso % (Auto) Lymph # (Auto) [place] # (Auto) Eos # (Auto) Baso # (Auto) Abs Immat Gran (auto) Absolute Neuts (auto) Absolute Nucleated RBC Nucleated RBC % (auto) Sodium Potassium Chloride Carbon Dioxide Anion Gap BUN Creatinine Estim Creat Clear Calc Estimated GFR Random Glucose Estimat Average Glucose Hemoglobin A1c % Calcium Magnesium Iron TIBC % Saturation Unsat Iron Binding Triglycerides Cholesterol LDL Cholesterol, Calc HDL Cholesterol Stool Occult Blood Blood Type Antibody Screen 05/06/23 05/06/23 07:27 07:27 WBC RBC Hgb Cancelled Hct 28.2 L Cancelled MCV 76.0 L MCH 25.3 L MCHC 33.3 RDW 15.7 Plt Count 221 MPV 9.6 Immature Gran % (Auto) 0.3 Neut % (Auto) 54.3 Lymph % (Auto) 33.2 [place] % (Auto) 9.4 Eos % (Auto) 2.5 Baso % (Auto) 0.3 Lymph # (Auto) 2.0 [place] # (Auto) 0.6 Eos # (Auto) 0.2 Baso # (Auto) 0.0 Abs Immat Gran (auto) 0.02 Absolute Neuts (auto) 3.2 Absolute Nucleated RBC 0.000 Nucleated RBC % (auto) 0.0 Sodium 139 Potassium 4.1 Chloride 106 Carbon Dioxide 28 Anion Gap 9 L BUN 10 Creatinine 0.75 Estim Creat Clear Calc 173.6 Estimated GFR > 60 Random Glucose 90 Estimat Average Glucose 100 Hemoglobin A1c % 5.1 Calcium 8.5 Magnesium 1.9 Iron 22 L TIBC 320 % Saturation 7 L Unsat Iron Binding 298 Triglycerides 331 H Cholesterol 199 LDL Cholesterol, Calc 99 HDL Cholesterol 34 L Stool Occult Blood Blood Type Antibody Screen Discharge Plan Discharge Anticipated Discharge Date/Time: 05/06/23 13:29 Patient Disposition: Home, Self-Care Discharge Diagnosis: Iron-deficiency anemia gastritis Referrals: Cricket Lua MD [Primary Care Provider] - 1 Week Discharge Medications: New omeprazole 40 mg Capsule,Delayed Release(Dr/Ec) 40 mg PO DAILY@0630 Qty: 30 0RF ferrous sulfate 325 mg (65 mg iron) tablet 325 mg PO DAILY Qty: 30 0RF Continued acetaminophen 325 mg Tablet 650 mg PO Q6H PRN (Reason: Pain) omega 4-lcc-isx-fish oil [Fish Oil] 1,000 mg (120 mg-180 mg) Capsule 1 cap PO DAILY Discharge Orders: Discharge Order (Routine); Ordered 05/06/23 Ordered By: Mile Fitzpatrick Diet: Advance to usual diet Activity on Discharge: As tolerated Stand Alone Forms: Patient Portal Discharge page Care Plan Goals: Start taking: Omeprazole 40 mg daily and Ferrous sulfate 325 mg daily stop drinking alcohol avoid nsaids Health Concerns: Iron-deficiency anemia gastritis Plan of Treatment: Follow-up with primary care provider as needed Take all medications as prescribed Assessment: See discharge summary
--- NOTE | 2023-05-06 13:58 | MHC.CM.PN ---
DP: PT HAS BEEN MEDICALLY CLEARED OR DC HOME, NO SERVICES. PT HAS OWN RIDE HOME
--- NOTE | 2023-05-06 15:17 | CONS_ITS ---
DATE OF SERVICE: 05/06/2023 REFERRING PHYSICIAN: Mile Fitzpatrick NP REASON FOR CONSULTATION: GI bleeding. HISTORY OF PRESENT ILLNESS: The patient is a 27-year-old man, who was admitted to the hospital after presenting to the emergency room with black stools for 3 days prior to admission. He has a history of peptic ulcer disease and was evaluated in [place] with endoscopy and colonoscopy with an apparent diagnosis of ulcers. Records are not available, but have been requested. He reports drinking alcohol and not taking his proton pump inhibitor over the weekend and having black stools, but no dysphagia, hematemesis, or melena. He was evaluated in the emergency department with laboratory studies documenting a hematocrit of 30.2 yesterday, which was stable overnight, dropping slightly to 28.2. There has been no reported melena since admission. He has been treated with a proton pump inhibitor. PAST MEDICAL HISTORY: 1. Peptic ulcer disease as above. 2. Anemia. CURRENT MEDICATIONS: His current medication list is reviewed in the chart. ALLERGIES: THERE ARE NONE REPORTED. FAMILY HISTORY: This is reviewed with the patient. It is negative for GI malignancy. SOCIAL HISTORY: There is no current tobacco abuse. He does drink alcohol as above. REVIEW OF SYSTEMS: SKIN: No pruritus. HEENT: Negative. CARDIOPULMONARY: He denies shortness of breath or chest pain. GASTROINTESTINAL: As above. GENITOURINARY: Negative. NEUROPSYCHIATRIC: Negative. PHYSICAL EXAMINATION: GENERAL: Shows a pleasant male, in no acute distress. VITAL SIGNS: Stable. SKIN: Anicteric. HEENT: Shows no scleral icterus. NECK: Without lymphadenopathy or thyromegaly. LUNGS: Clear. HEART: Shows a regular rate and rhythm. S1, S2. No murmur. ABDOMEN: Soft without focal masses or tenderness. Bowel sounds are present. No organomegaly is noted. EXTREMITIES: Without edema. LABORATORY DATA AND IMAGING STUDIES: Reviewed. IMPRESSION AND PLAN: Gastrointestinal bleeding. His presentation appears consistent with upper gastrointestinal bleeding, likely from peptic ulcer disease. This has probably been exacerbated by his alcohol use and lack of continued medication. I discussed endoscopy with him including risks and benefits of the procedure today. He understands these and agrees to proceed. This will be arranged for shortly today. Thanks for asking me to see him. I will follow him in the hospital with you. MD YUSRA John/CAROL / [id number]
== END 2023-05-06 14:34 | disposition home or self-care (01) | DRG 241 ==
LOC: HO.ED 15:56 → HO.EDOVER 16:41 → HO.S3 05-06 02:54
PROVIDERS: Internal Medicine Gastroenterology; Physician Assistant; Physician Assistant Medical; Admitting Provider Nurse Practitioner Acute Care; Emergency Provider Emergency Medicine; PCP Internal Medicine; Visit Provider Nurse Practitioner Acute Care
PROC: 0DB78ZX Excision of Stomach, Pylorus, Via Natural or Artificial Opening Endoscopic, Diagnostic (ICD-10-PCS; CPT 43239; principal; 2023-05-06 12:20)
DX: K26.4 Chronic or unspecified duodenal ulcer with hemorrhage (principal); T47.1X6A Underdosing of other antacids and anti-gastric-secretion drugs, initial encounter; K29.71 Gastritis, unspecified, with bleeding; Z91.128 Patient's intentional underdosing of medication regimen for other reason; Z20.822 Contact with and (suspected) exposure to COVID-19; Z87.891 Personal history of nicotine dependence; Z79.899 Other long term (current) drug therapy
CPT/HCPCS: 43239; 36415; 71046; 80048; 80053; 80061; 81001; 82272; 83036; 83540; 83690; 83735; 84484; 85014; 85018; 85025; 85610; 85730; 86850; 86900; 86901; 87502; 87635; 88305; 88313; 88342; 93005; 99221; 99285; C9113; J2704

== ENCOUNTER → 2023-05-05 11:26 | Outpatient (BNV) | payer OTHER, SELFPAY | PROVIDERS: Admitting Provider Nurse Practitioner Acute Care; Emergency Provider Emergency Medicine; PCP Internal Medicine; Visit Provider Internal Medicine Cardiovascular Disease | DX: R42 Dizziness and giddiness (principal); R53.1 Weakness; R94.31 Abnormal electrocardiogram [ECG] [EKG] | CPT/HCPCS: 93010 ==

== ENCOUNTER → 2023-05-05 16:40 | Outpatient (BNV) | payer OTHER, SELFPAY | PROVIDERS: Admitting Provider Nurse Practitioner Acute Care; Emergency Provider Emergency Medicine; PCP Internal Medicine; Visit Provider Nurse Practitioner Acute Care | DX: K92.2 Gastrointestinal hemorrhage, unspecified (principal) | CPT/HCPCS: 99223; 99238 ==

== ENCOUNTER 2023-08-11 14:15 | Outpatient (REF) | payer OTHER, SELFPAY ==
[2023-08-11 14:36] LABS: MANUAL DIFF FLAG NO
[2023-08-11 15:25] LABS: Basophils Percent Auto 0.4 % (0-2); Eosinophils Absolute Auto 0.2 X10*3/uL (0.0-0.4); Hematocrit 39.7 % (42.0-52.0); Imm Gran Abs Auto 0.01 X10*3/uL (0.00-0.03); Imm Gran Pct Auto 0.1 % (0.0-0.4); Lymphocytes Absolute Auto 2.3 X10*3/uL (1.2-4.9); Lymphocytes Percent Auto 30.5 % (20-40); Mean Corpuscular HGB Conc 30.2 g/dl (31.0-36.0); Mean Corpuscular Hemoglobin 21.5 pg (27.0-33.0); Mean Corpuscular Volume 71.3 fL (80.0-98.0); Mean Platelet Volume 9.6 fL (9.4-12.4); Monocytes Absolute Auto 0.4 X10*3/uL (0.1-1.2); Monocytes Percent Auto 5.8 % (2-11); Neutrophils Absolute Auto 4.5 x10*3/uL (2.0-8.3); Neutrophils Percent Auto 61.2 % (45-73); Platelet Count 352 X10*3/uL (160-400); Red Blood Count 5.57 X10*6/uL (4.60-5.80); Red Cell Distribution Width 14.3 % (11.0-16.0); White Blood Count 7.4 X10*3/uL (4.8-10.8)
[2023-08-11 16:20] LABS: Iron 27 mcg/dL (45-160); Percent Iron Saturation 7 % (15-50); Total Iron Binding Capacity 374 mcg/dL (228-428); Unsaturated Iron Binding 347 ug/dL
[2023-08-11 16:36] LABS: Ferritin 18 ng/mL (20-250)
== END 2023-08-11 14:16 | disposition home or self-care (01) ==
LOC: HO.LAB 14:15
PROVIDERS: PCP Internal Medicine; Visit Provider Internal Medicine Gastroenterology
DX: K26.9 Duodenal ulcer, unspecified as acute or chronic, without hemorrhage or perforation (principal); A04.8 Other specified bacterial intestinal infections
CPT/HCPCS: 36415; 82728; 83540; 85025